=== PATIENT | male | born 1970 | race Caucasian/White ===

== ENCOUNTER → 2016-03-15 | Outpatient (CLI) | payer MEDICAID ==
[~2016-03-15] VITALS: Ht 185.4 cm; Wt 72.6 kg
[~2016-03-15] MED LIST: AMLO10TA; ASP325T PO; CATHETER FLUSH 10 ML SYR IV PRN; CETI10TA17; CYCL10TA9; HYDR-2856; LOSA100T7 PO; MULT-963 PO; PALI6TAB2 PO; RANI-10; REGADENOSON 0.4 MG/5 ML SYR (LEXISCAN) IV ONE; ROSU20TA14 PO
[2016-03-15 12:52] VITALS: BP 133/85
--- NOTE | 2016-03-16 08:53 | STRESS TEST ---
PROCEDURE PHYSICIAN: SAMANTHA VAN DATE OF PROCEDURE: 03/15/2016 LEXISCAN MYOVIEW STRESS TEST REPORT: REFERRING PHYSICIAN: Dr. Cheyanne Anton INDICATION FOR THE PROCEDURE: Chest pain. BASELINE HEART RATE: 78 BASELINE BLOOD PRESSURE: 133/85 BASELINE EKG: Sinus rhythm with nondiagnostic changes. IN SUMMARY: The patient was injected with 10.87 mCi of technetium 99 Myoview and the resting images were obtained. Then the patient received 0.4 mg of Lexiscan followed by 30.6 mCi of technetium 99 Myoview. Throughout the test, there were no EKG changes. The resting and stress images were reviewed and compared in the short axis, horizontal long axis, and vertical long axis views. Review of the images showed good radiotracer uptake with diaphragmatic attenuation. There is no significant ischemia or infarction. SSS is 1, SDS 1, TID value 0.93. On the gated images, the left ventricle appeared to be normal size with normal contractility. Calculated ejection fraction 56%. IN CONCLUSION: 1. The patient tolerated Lexiscan well. 2. No ischemia or infarction on SPECT images. 3. Normal left ventricular size with normal contractility. Calculated ejection fraction 56%. Job ID: [id number] Dictated Date: 03/15/2016 16:10:21 Crayon Grader Date: 03/16/2016 08:49:22 / bernardo
== END ==
LOC: CARD 10:58
PROVIDERS: ATTEND Internal Medicine Cardiovascular Disease
DX: R07.89 Other chest pain (principal); I10 Essential (primary) hypertension; E78.2 Mixed hyperlipidemia; F25.9 Schizoaffective disorder, unspecified
CPT/HCPCS: 78452; 93017

== ENCOUNTER → 2018-03-06 | Outpatient (CLI) | payer MEDICAID ==
[~2018-03-06] MED LIST changes: -CATHETER FLUSH 10 ML SYR IV PRN; -REGADENOSON 0.4 MG/5 ML SYR (LEXISCAN) IV ONE
== END ==
LOC: CARD 12:30
PROVIDERS: ATTEND Internal Medicine Cardiovascular Disease
DX: I10 Essential (primary) hypertension (principal); E78.5 Hyperlipidemia, unspecified; R07.89 Other chest pain; I07.1 Rheumatic tricuspid insufficiency
CPT/HCPCS: 93306

== ENCOUNTER → 2018-03-27 | Outpatient (CLI) | payer MEDICAID ==
[~2018-03-27] MED LIST changes: +CATHETER FLUSH 10 ML SYR IV PRN
--- NOTE | 2018-03-27 15:45 | STRESS TEST ---
DATE OF SERVICE: 03/27/2018 EXERCISE MYOVIEW STRESS TEST REPORT REFERRING PHYSICIAN: Dr. Billy Garrido. Baseline heart rate is 94, baseline blood pressure is 152/95. Baseline EKG is sinus rhythm with no ischemic changes. In summary, the patient was injected with 10.73 mCi of technetium-99 Myoview and the resting images were obtained. Then, the patient started exercising with a baseline heart rate, blood pressure and EKG mentioned above. The patient was able to exercise for a total of 6 minutes on standard Sid protocol. With peak exercise level, EKG was showing nondiagnostic changes. During recovery, heart rate and blood pressure returned to baseline. EKG returned to baseline. The resting and stress images were reviewed and compared in the short axis, horizontal long axis, and vertical long axis views. Review of the images showed diaphragmatic attenuation with mild decreased uptake at the inferoapical segment with subtle reversibility, no significant ischemia or infarction was seen. SSS is 2, SDS 2, TID value 0.91. On the gated images, the left ventricle appeared to be in normal size with normal contractility. Calculated ejection fraction 63%. CONCLUSION: 1. Fair exercise tolerance, a total of 6 minutes on standard Sid protocol, total of 7.3 METS achieving 90% of maximum expected heart rate. 2. Appropriate heart rate response to exercise with hypertensive response to exercise with peak blood pressure 181/93. 3. Nondiagnostic EKG changes with exercise returned to baseline during recovery. 4. Diaphragmatic attenuation with typical male pattern with no significant ischemia or infarction on SPECT images. 5. Normal left ventricular size with normal contractility. Calculated ejection fraction 63%. Job ID: [id number] DocumentID: [id number] Dictated Date: 03/27/2018 15:20:11 Blender Helper Date: 03/27/2018 15:44:13 Dictated By: SAMANTHA VAN MD
== END ==
LOC: CARD 11:32
PROVIDERS: ATTEND Internal Medicine Cardiovascular Disease
DX: I10 Essential (primary) hypertension (principal); E78.5 Hyperlipidemia, unspecified; R07.89 Other chest pain; F25.9 Schizoaffective disorder, unspecified
CPT/HCPCS: 78452; 93017

== ENCOUNTER → 2020-08-27 | Outpatient (CLI) | payer MEDICAID ==
[~2020-08-27] MED LIST changes: -CATHETER FLUSH 10 ML SYR IV PRN
--- NOTE | 2020-08-27 12:23 | Diagnostic Imaging Report ---
PROCEDURE: MRI left joint lower extremity without contrast. TECHNIQUE: Multiplanar, multisequence non contrast-enhanced MRI of the left lower extremity was accomplished. INDICATION: Left knee pain, no recent injury. Previous necrosis of the left knee. COMPARISON: None FINDINGS: There is motion artifact on multiple sequences. Some sequences demonstrate decreased signal. There is edema and subcortical STIR bright signal with additional hypointensity at the articular surface of the medial femoral condyle, measuring about 3 cm AP, and 2 cm transverse. There is moderate associated bone marrow edema. There is a small left knee joint effusion. The articular cartilage in the patellofemoral compartment demonstrates no full-thickness defects. The articular cartilage in the medial compartment demonstrates full-thickness cartilage loss at the weightbearing aspect. The articular cartilage in the lateral compartment demonstrates no full-thickness defects. There is a horizontal tear throughout the posterior horn and body of the medial meniscus. The lateral meniscus appears intact. The medial collateral ligament appears intact although there is mild adjacent edema which is likely due to the underlying meniscal pathology. The lateral collateral ligamentous complex is intact. The extensor mechanism is intact. There is mild edema in the suprapatellar fat pad. IMPRESSION: 1. Horizontal tear of the medial meniscus in the left knee. 2. Full-thickness cartilage loss in the medial compartment. 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 3. Small left knee joint effusion. Dictated by: Dictated on workstation # [id number]
== END ==
LOC: RAD 11:00
PROVIDERS: ATTEND Orthopaedic Surgery
DX: S83.242A Other tear of medial meniscus, current injury, left knee, initial encounter (principal); M87.052 Idiopathic aseptic necrosis of left femur
CPT/HCPCS: 73721

== ENCOUNTER 2022-06-14 08:17 | Outpatient (CLI) | payer MEDICAID ==
[~2022-06-14] VITALS: Ht 182.9 cm; Wt 77.1 kg
[2022-06-22] MEDS ORDERED: ROSU10TA28 PO (12:41)
[2022-06-22] MEDS ORDERED: CETI10TA17 PO (12:41)
[2022-06-22] MEDS ORDERED: FAMO20TA5 PO (12:41)
[2022-06-22] MEDS ORDERED: METO-333 PO (12:41)
[2022-06-22] MEDS ORDERED: AMLO-251 PO (12:41)
[2022-06-22] MEDS ORDERED: LISI10TA25 PO (12:41)
== END 2022-06-22 12:44 | disposition home or self-care (01) ==
LOC: PREOP 08:17
PROVIDERS: ATTEND Surgery
DX: Z01.818 Encounter for other preprocedural examination (principal)

== ENCOUNTER → 2022-06-22 | Outpatient (CLI) | payer MEDICAID ==
[~2022-06-22] MED LIST changes: +AMLO-251 PO; +CETI10TA17 PO; +FAMO20TA5 PO; +LISI10TA25 PO; +METO-333 PO; +ROSU10TA28 PO
[2022-06-22 10:40] LABS: ALBUMIN 5.1 GM/DL (3.2-4.5); CHLORIDE 101 MMOL/L (98-107); POTASSIUM 4.4 MMOL/L (3.6-5.0); SODIUM 134 MMOL/L (135-145)
[2022-06-22 10:41] LABS: CALCIUM 10.1 MG/DL (8.5-10.1)
[2022-06-22 10:42] LABS: TRIGLYCERIDES 113 MG/DL (<150); VLDL CHOLESTEROL 23 MG/DL (5-40)
[2022-06-22 10:43] LABS: GLUCOSE 115 MG/DL (70-105); TOTAL PROTEIN 8.5 GM/DL (6.4-8.2)
[2022-06-22 10:44] LABS: BILIRUBIN,TOTAL 1.1 MG/DL (0.1-1.0); CARBON DIOXIDE 21 MMOL/L (21-32)
[2022-06-22 10:46] LABS: ALKALINE PHOSPHATASE 53 U/L (40-136); CREATININE SERUM 0.89 MG/DL (0.60-1.30); GFR ESTIMATED 104
[2022-06-22 10:47] LABS: CHOLESTEROL 232 MG/DL (< 200)
[2022-06-22 10:48] LABS: BUN/CREATININE RATIO 16; HDL CHOLESTEROL 71 MG/DL (40-60)
[2022-06-22 10:49] LABS: ALANINE AMINOTRANSFERASE 18 U/L (0-55)
== END ==
LOC: LAB 10:13
PROVIDERS: ATTEND Physician Assistant
DX: E78.2 Mixed hyperlipidemia (principal)
CPT/HCPCS: 36415; 80053; 80061